=== PATIENT | female | born 1985 | race Caucasian/White ===

== ENCOUNTER 2023-10-30 12:21 | Inpatient (IN) | payer OTHER ==
[~2023-10-30] VITALS: Ht 157.5 cm; Wt 83.6 kg
[2023-10-30 13:14] VITALS: BP 138/86
[2023-10-30 13:56] LABS: BASO % 0.3 % (0.0-1.0); EOS # 0.1 10*3/uL (0.0-0.4); EOS % 0.6 % (1.0-4.0); HEMATOCRIT 38.7 % (37.0-47.0); LYMPH # 1.9 10*3/uL (1.3-4.4); LYMPH % 23.5 % (27.0-41.0); MEAN CELL VOLUME 80.5 fl (81.0-99.0); MEAN CORPUSCULAR HGB 25.8 pg (27.0-31.0); MEAN PLATELET VOLUME 9.7 fl (9.6-12.3); MONO # 0.5 10*3/uL (0.1-1.0); MONO % 6.8 % (3.0-9.0); NEUT # 5.4 10*3/uL (2.3-7.9); NEUT % 68.3 % (47.0-73.0); PLATELET COUNT AUTOMATED 196 10*3/uL (130-400); RED BLOOD COUNT 4.81 10*6/uL (4.10-5.10); RED CELL DISTRI WIDTH 13.9 % (0-14.5); WHITE BLOOD COUNT 7.9 10*3/uL (4.8-10.8)
[2023-10-30 14:18] LABS: ALKALINE PHOSPHATASE 69 U/L (46-116); BUN 6 mg/dl (9-23); CHLORIDE 107 mmol/L (98-107); POTASSIUM 3.7 mmol/L (3.4-5.1); SGPT/ALT 11 U/L (5-49); TOTAL PROTEIN 7.4 gm/dL (6.0-8.0)
[2023-10-30] MEDS ORDERED: FUROSEMIDE 40 MG/4 ML VIAL IV ONE (14:25)
[2023-10-30] MEDS ORDERED: Ondansetron Hydrochloride 4 MG TAB SL ONE (16:05)
[2023-10-30 16:29] VITALS: BP 133/64
[2023-10-30] MEDS ORDERED: Ondansetron Hydrochloride 4 MG/2 ML VIAL IV PRN (16:45)
[2023-10-30] MEDS ORDERED: BISACODYL 10 MG SUPP R PRN (16:45)
[2023-10-30] MEDS ORDERED: BISACODYL 5 MG TAB PO PRN (16:45)
[2023-10-30] MEDS ORDERED: ACETAMINOPHEN 325 MG TAB PO PRN (16:45)
[2023-10-30] MEDS ORDERED: Acetaminophen/Hydrocodone 5 MG/325 MG TABLET PO PRN (16:45)
[2023-10-30] MEDS ORDERED: Magnesium Hydroxide 30 ML UDC PO PRN (16:45)
[2023-10-30] MEDS ORDERED: ACETAMINOPHEN 650 MG SUPP R PRN (16:45)
[2023-10-30] MEDS ORDERED: TEMAZEPAM 15 MG CAP PO PRN (16:45)
[2023-10-30 19:12] LABS: BILIRUBIN Negative (Negative); BLOOD 2+ (Negative); CLARITY Clear (Clear); COLOR Yellow (Yellow); GLUCOSE Negative (Negative); KETONE Negative (Negative); LEUKO ESTERASE Trace (Negative); NITRITE Negative (Negative); SPECIFIC GRAVITY <= 1.005 (1.001-1.030); UROBILINOGEN 0.2 E.U./dl (0.0-1.0)
[2023-10-30 19:23] LABS: BACTERIA 1+
[2023-10-30 21:30] VITALS: BP 135/72
[2023-10-30] MEDS ORDERED: ATORVASTATIN CA10 M1 PO (21:53)
[2023-10-30] MEDS ORDERED: CLONAZEPAM0.5 M2 PO (21:54)
[2023-10-30] MEDS ORDERED: OXCARBAZEPINE300 M1 PO (21:54)
[2023-10-30] MEDS ORDERED: LOSARTAN POTAS100 M1 PO (21:55)
[2023-10-30] MEDS ORDERED: PANTOPRAZOLE SO40 MG PO (21:56)
[2023-10-31] VITALS: BP 111/54
[2023-10-31] MEDS ORDERED: clonAZEPAM 0.5 MG TAB PO PRN (00:15)
[2023-10-31 05:16] LABS: BUN 8 mg/dl (9-23); CHLORIDE 103 mmol/L (98-107); CHOLESTEROL 181 mg/dL (<200); FREE T4 1.18 ng/dl (0.89-1.76); LDL CHOLESTEROL 105 mg/dL (9-159); POTASSIUM 3.3 mmol/L (3.4-5.1); TRIGLYCERIDES 101 mg/dl (<150)
[2023-10-31] MEDS ORDERED: Pantoprazole Sodium 40 MG TAB PO SCH (06:00)
[2023-10-31 06:21] LABS: BASO % 0.3 % (0.0-1.0); EOS # 0.1 10*3/uL (0.0-0.4); EOS % 1.9 % (1.0-4.0); HEMATOCRIT 38.4 % (37.0-47.0); LYMPH % 39.6 % (27.0-41.0); MEAN CELL VOLUME 81.2 fl (81.0-99.0); MEAN CORPUSCULAR HGB 25.4 pg (27.0-31.0); MEAN CORPUSCULAR HGB CONC 31.3 g/dl (33.0-37.0); MEAN PLATELET VOLUME 9.9 fl (9.6-12.3); MONO # 0.7 10*3/uL (0.1-1.0); MONO % 9.3 % (3.0-9.0); NEUT # 3.7 10*3/uL (2.3-7.9); NEUT % 48.6 % (47.0-73.0); PLATELET COUNT AUTOMATED 207 10*3/uL (130-400); RED BLOOD COUNT 4.73 10*6/uL (4.10-5.10); WHITE BLOOD COUNT 7.5 10*3/uL (4.8-10.8)
[2023-10-31 06:28] LABS: ACT PARTIAL THROMBO TIME 28.1 SECONDS (20.0-32.1)
[2023-10-31] MEDS ORDERED: POTASSIUM CHLORIDE 20 MEQ TAB PO ONE (07:55)
[2023-10-31 08:00] VITALS: BP 121/67
[2023-10-31 08:30] LABS: VITAMIN D, 25-HYDROXY 27.9 ng/mL (30-100)
[2023-10-31] MEDS ORDERED: Losartan Potassium 50 MG TAB PO SCH (10:00)
[2023-10-31] MEDS ORDERED: FUROSEMIDE 20 MG/2 ML VIAL IV ONE (10:00)
[2023-10-31] MEDS ORDERED: OXcarbazepine 150 MG TAB PO SCH (10:00)
[2023-10-31] MEDS ORDERED: Enoxaparin Sodium 40 MG/0.4 ML SYR SC SCH (10:00)
[2023-10-31 12:00] VITALS: BP 127/80
[2023-10-31] MEDS ORDERED: Ondansetron Hydrochloride 4 MG TAB SL PRN (12:15)
[2023-10-31] MEDS ORDERED: Technetium Tc 99M Tetrofosmi 0.23 MG KIT IJ SCH (12:55)
[2023-10-31 16:00] VITALS: BP 115/66
[2023-10-31] MEDS ORDERED: ATORVASTATIN CALCIUM 10 MG TAB PO SCH (18:00)
[2023-10-31 20:00] VITALS: BP 127/81
[2023-11-01] VITALS: BP 99/50
[2023-11-01] MEDS ORDERED: Regadenoson 0.4 MG/5 ML SYR IV ONE (05:24)
[2023-11-01 08:00] VITALS: BP 125/62
[2023-11-01] MEDS ORDERED: HYDROCHLOROTHIAZIDE 12.5 MG CAP PO SCH (10:00)
[2023-11-01] MEDS ORDERED: Cholecalciferol 2,000 UNIT TABLET (50 MCG) PO SCH (10:00)
[2023-11-01 11:56] VITALS: BP 116/80
[2023-11-01] MEDS ORDERED: HYDR12.5C PO (15:19)
[2023-11-01] MEDS ORDERED: K-TAB20 MEQ PO (15:19)
[2023-11-01] MEDS ORDERED: VITAMIN D350 MCG PO (15:19)
[2023-11-01] MEDS ORDERED: POTASSIUM CHLORIDE 20 MEQ TAB PO ONE (15:25)
[2023-11-01 16:00] VITALS: BP 112/58
== END 2023-11-01 17:02 | disposition home or self-care (01) | DRG 392 ==
LOC: ED 12:21 → 4E 16:29 → EDHOLD 16:29 → 4E 20:20
PROVIDERS: Internal Medicine; ADMIT Internal Medicine; ATTEND Internal Medicine
PROC: 4A02XM4 Measurement of Cardiac Total Activity, External Approach (ICD-10-PCS; principal; 2023-10-31)
PROC: 3E033HZ Introduction of Radioactive Substance into Peripheral Vein, Percutaneous Approach (ICD-10-PCS; 2023-10-31)
DX: K21.9 Gastro-esophageal reflux disease without esophagitis (principal); I11.0 Hypertensive heart disease with heart failure; I50.9 Heart failure, unspecified; F41.1 Generalized anxiety disorder; E03.8 Other specified hypothyroidism; E87.6 Hypokalemia; F31.9 Bipolar disorder, unspecified; N80.9 Endometriosis, unspecified; Z90.49 Acquired absence of other specified parts of digestive tract; Z87.891 Personal history of nicotine dependence; Z82.49 Family history of ischemic heart disease and other diseases of the circulatory system